=== PATIENT | male | born 1995 | race Caucasian/White ===

== ENCOUNTER 2017-01-31 11:07 | Inpatient (IN) | payer OTHER ==
--- NOTE | 2017-01-31 11:46 | EDPHY ---
H & P Stated Complaint: WOUND INFECTION L KNEE NOT BETTER ON ORAL ABX Time Seen by Provider: 01/31/17 11:33 HPI/ROS: CHIEF COMPLAINT: Worsening left leg infection HISTORY OF PRESENT ILLNESS: 21-year-old male history of atopic dermatitis, no history of MRSA, was in [place] last week and noted a pimple appearing area on his left lateral knee which became progressively larger, more thumb at this. He was seen at an urgent care emergency department initially started on monotherapy with Keflex and subsequently had Bactrim added to his medication regimen as he had progressively enlarging erythema. The erythema has become progressively larger and migrated proximally. He also notes recent fevers. No myalgias. No nausea or vomiting. He is here with his mother who is a local family practice physician. PRIMARY CARE PROVIDER: Leon Meyer REVIEW OF SYSTEMS: A ten point review of systems was performed and is negative with the exception of the items mentioned in the HPI PAST MEDICAL & SURGICAL HISTORY: Atopic dermatitis. History of septic arthritis left knee in 7th grade. SOCIAL HISTORY:lives in [place] PHYSICAL EXAM (Prior to examination, patient consented to physical exam, hands were washed and my usual and customary physical exam procedures followed) 1) GENERAL: Well-developed, well-nourished, alert and oriented. Appears nontoxic . 2) HEAD: Normocephalic, atraumatic 3) HEENT: Pupils equal, round, reactive to light bilaterally. Sclera anicteric. 4) NECK: Full range of motion, no meningeal signs. 5) LUNGS: Clear auscultation bilaterally 6) HEART: Regular rate and rhythm, no murmur, no heave, no gallop. 7) ABDOMEN: No guarding, no rebound, no focal tenderness, 8) MUSCULOSKELETAL: left lower extremity: Lateral aspect of the knee extending distally and more significantly proximally he has beefy red erythema with induration and a central lesion which is weeping. There is no fluctuance. No painWith axial loading of the knee joint. Full range of motion.Positive inguinal adenopathy. Soft tissue swelling of the left lower extremity is present with DP PT pulses present and brisk with normal color normal temperature. No crepitus. 9) BACK: no visual or palpable abnormality. 10) SKIN: No rash, no petechiae. DIFFERENTIAL DIAGNOSIS: in no particular include but not limited to cellulitis , abscess, DVT - Personal History Current Tetanus/Diphtheria Vaccine: Yes - Medical/Surgical History Hx Asthma: Yes Hx Chronic Respiratory Disease: No Hx Diabetes: No Hx Cardiac Disease: No Hx Renal Disease: No Hx Cirrhosis: No Hx Alcoholism: No Hx HIV/AIDS: No Hx Splenectomy or Spleen Trauma: No Other PMH: ASTHMA/EXCEMA - Social History Smoking Status: Never smoked Constitutional: Initial Vital Signs Temperature (C) 36.5 C 01/31/17 11:16 Heart Rate 68 01/31/17 11:16 Respiratory Rate 16 01/31/17 11:16 Blood Pressure 100/66 01/31/17 11:16 O2 Sat (%) 97 01/31/17 11:16 O2 Delivery Mode Room Air Allergies/Adverse Reactions: seafood Allergy (Uncoded 01/31/17 11:15) Home Medications: Medication Instructions Recorded Albuterol 01/31/17 Bactrim DS 01/31/17 Keflex 01/31/17 Qvar 01/31/17 Singulair 01/31/17 ZYRTEC 01/31/17 Medical Decision Making - Diagnostics Imaging Results: Imaging Impressions Extremity Venous Study 01/31/17 11:46 Impression: 1. Left groin nonspecific adenopathy. 2. No deep venous thrombosis left leg. Findings and recommendations discussed with Emergency Department physicianSarahi at 12:31 hour, 01/31/2017. Final report concurs with initial preliminary interpretation. Knee X-Ray 01/31/17 11:46 Impression: Soft tissue swelling with no acute osseous findings. images reviewed by myself ED Course/Re-evaluation: 1140 am: Discussed case with Dr Zeng in ER. 11:45 a.m.: The ER textile science technician has spoken with the hospital in [place], [place] and a will be faxing the wound culture results from 4 days ago 12:07 p.m.: Phone consultation hospitalist, Lulu, admit to Dr. Whitney. Patient will be started on Ancef as he has no known MRSA history. 12:25 p.m.: Wound culture results from hospital in [place] are positive for Staph aureus resistant to cephalosporin, sensitive to vancomycin - Data Points Laboratory Results: Laboratory Results 01/31/17 11:50 01/31/17 11:50 01/31/17 01/31/17 11:50 11:50 WBC 7.42 10^3/uL 10^3/uL (3.80-9.50) RBC 4.07 10^6/uL L 10^6/uL (4.40-6.38) Hgb 12.8 g/dL L g/dL (13.7-17.5) Hct 37.2 % L % (40.0-51.0) MCV 91.4 fL fL (81.5-99.8) MCH 31.4 pg pg (27.9-34.1) MCHC 34.4 g/dL g/dL (32.4-36.7) RDW 12.2 % % (11.5-15.2) Plt Count 229 10^3/uL 10^3/uL (150-400) MPV 9.8 fL fL (8.7-11.7) Neut % (Auto) 61.2 % % (39.3-74.2) Lymph % (Auto) 18.1 % % (15.0-45.0) [place] % (Auto) 12.4 % % (4.5-13.0) Eos % (Auto) 7.5 % % (0.6-7.6) Baso % (Auto) 0.4 % % (0.3-1.7) Nucleat RBC Rel Count 0.0 % % (0.0-0.2) Absolute Neuts (auto) 4.54 10^3/uL 10^3/uL (1.70-6.50) Absolute Lymphs (auto) 1.34 10^3/uL 10^3/uL (1.00-3.00) Absolute Monos (auto) 0.92 10^3/uL H 10^3/uL (0.30-0.80) Absolute Eos (auto) 0.56 10^3/uL H 10^3/uL (0.03-0.40) Absolute Basos (auto) 0.03 10^3/uL 10^3/uL (0.02-0.10) Absolute Nucleated RBC 0.00 10^3/uL 10^3/uL (0-0.01) Immature Gran % 0.4 % % (0.0-1.1) Immature Gran # 0.03 10^3/uL 10^3/uL (0.00-0.10) Sodium 138 mEq/L mEq/L (134-144) Potassium 4.5 mEq/L mEq/L (3.5-5.2) Chloride 103 mEq/L mEq/L (97-110) Carbon Dioxide 27 mEq/l mEq/l (22-31) Anion Gap 8 mEq/L mEq/L (8-16) BUN 11 mg/dL mg/dL (7-23) Creatinine 0.8 mg/dL mg/dL (0.7-1.3) Estimated GFR > 60 Glucose 83 mg/dL mg/dL (70-100) Calcium 9.3 mg/dL mg/dL (8.5-10.4) Medications Given: Discontinued Medications Cefazolin Sodium/Dextrose (Ancef 1 Gm (Premix)) 50 mls @ 200 mls/hr IV EDNOW ONE PRN Reason: Protocol Stop: 01/31/17 12:21 Last Admin: 01/31/17 12:18 Dose: 50 mls Departure - Departure Disposition: [facility] Inpatient Acute Clinical Impression: Left leg cellulitis Condition: Fair Referrals: NONE *PRIMARY CARE P,. [Primary Care Provider] - As per Instructions
[2017-01-31 11:59] LABS: % IMMATURE GRANULYOCYTES 0.4 % (0.0-1.1); ABSOLUTE IMMATURE GRANULOCYTES 0.03 10^3/uL (0.00-0.10); ADD DIFF? NO; ADD MORPH? NO; ADD SCAN? NO; ATYPICAL LYMPHOCYTE FLAG 20 (0-99); FRAGMENT RBC FLAG 0 (0-99); HEMATOCRIT 37.2 % (40.0-51.0); HEMOGLOBIN 12.8 g/dL (13.7-17.5); LEFT SHIFT FLG 10 (0-99); LIPEMIA HEMOLYSIS FLAG 90 (0-99); MEAN CELL HEMOGLOBIN 31.4 pg (27.9-34.1); MEAN CELL HEMOGLOBIN CONCENTR. 34.4 g/dL (32.4-36.7); MEAN CELL VOLUME 91.4 fL (81.5-99.8); MEAN PLATELET VOLUME 9.8 fL (8.7-11.7); PLATELET CLUMPS FLAG 0 (0-99); PLATELET COUNT 229 10^3/uL (150-400); RED BLOOD CELL COUNT 4.07 10^6/uL (4.40-6.38); RED CELL DISTRIBUTION WIDTH 12.2 % (11.5-15.2)
[2017-01-31 12:14] LABS: ANION GAP 8 mEq/L (8-16); CALCIUM 9.3 mg/dL (8.5-10.4); CARBON DIOXIDE 27 mEq/l (22-31); CHLORIDE 103 mEq/L (97-110); CREATININE 0.8 mg/dL (0.7-1.3); GLOMERULAR FILTRATION RATE > 60; GLUCOSE 83 mg/dL (70-100); POTASSIUM 4.5 mEq/L (3.5-5.2); SODIUM 138 mEq/L (134-144)
[2017-01-31] MEDS ORDERED: VANCOMYCIN HCL/NORMAL SALINE 250 ML IV ONE (12:28)
--- NOTE | 2017-01-31 13:32 | PDGENHP ---
History and Physical - Chief Complaint Left knee pain and redness - History of Present Illness 21 yo presenting to the ED with left knee pain with progressive induration and erythema. 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 The pain slowly progressed to the point where he could no longer stand or walk on his leg and had to use crutches. The pain is some what improved with Ibuprofen. The pain is described as constant, sharp, and isolated to the lower left lateral knee. He noticed erythema that started on his knee and spread upwards to his left thigh and lower calf. He reports fever ranging 99-102.5 and chills since since last . He denies trauma, but reports multiple small lacerations in his lower extremities that he may have sustained while working outdoors. Last he went to an urgent care in [place] where he received Bactrim. Tuesday he went to an ER where they drained the wound and prescribed Keflex to take with the Bactrim. The wound has been oozing pus since Tuesday. Today he went to [facility] which referred him to ED for IV antibiotics. Currently he denies fever, nausea, vomiting, diarrhea. He denies significant pain with left knee flexion/ extension. History Information - Allergies/Home Medication List Allergies/Adverse Reactions: seafood Allergy (Uncoded 01/31/17 11:15) Home Medications: Albuterol [Proventil Inhaler HFA (*)] 1 - 2 puffs IH Q4H PRN 01/31/17 [Last Taken Unknown] Cetirizine HCl 10 mg PO DAILY 01/31/17 [Last Taken 01/27/17] Montelukast Sodium [Singulair 10 mg (*)] 10 mg PO DAILY@1800 01/31/17 [Last Taken 01/29/17] I have personally reviewed and updated: family history, medical history, social history, surgical history - Past Medical History asthma Additional medical history: 1. Eczema. 2. septic arthritis right knee at age 10 - Surgical History Additional surgical history: I&D of septic arthritis, wisdom teeth removal - Social History Smoking Status: Never smoked Alcohol Use: None Drug Use: None Review of Systems ROS: 10pt was reviewed & negative except for what was stated in HPI & below Physical Exam Temp Pulse Resp BP Pulse Ox 36.8 C 63 18 144/73 H 96 01/31/17 12:00 01/31/17 12:00 01/31/17 12:00 01/31/17 12:00 01/31/17 12:00 Constitutional: no apparent distress, appears nourished, not in pain Eyes: PERRL, anicteric sclera, EOMI Ears, Nose, Mouth, Throat: moist mucous membranes, hearing normal, ears appear normal, no oral mucosal ulcers Cardiovascular: regular rate and rhythym, no murmur, rub, or gallop, No edema Respiratory: no respiratory distress, no rales or rhonchi, clear to auscultation Gastrointestinal: normoactive bowel sounds, soft, non-tender abdomen, no palpable masses Genitourinary: no bladder fullness, no bladder tenderness Skin: warm, other (draining wound left knee with surrounding erythema and induration extending up the thigh) Musculoskeletal: normal joint ROM (left knee without pain) Neurologic: AAOx3, CN II-XII Intact, No facial droop Psychiatric: interacting appropriately, not anxious, not encephalopathic, thought process linear Lymph, Heme, Immunologic: no cervical LAD, no supraclavicular LAD Lab Data & Imaging Review 01/31/17 11:50 01/31/17 11:50 WBC 7.42 10^3/uL (3.80-9.50) 01/31/17 11:50 RBC 4.07 10^6/uL (4.40-6.38) L 01/31/17 11:50 Hgb 12.8 g/dL (13.7-17.5) L 01/31/17 11:50 Hct 37.2 % (40.0-51.0) L 01/31/17 11:50 MCV 91.4 fL (81.5-99.8) 01/31/17 11:50 MCH 31.4 pg (27.9-34.1) 01/31/17 11:50 MCHC 34.4 g/dL (32.4-36.7) 01/31/17 11:50 RDW 12.2 % (11.5-15.2) 01/31/17 11:50 Plt Count 229 10^3/uL (150-400) 01/31/17 11:50 MPV 9.8 fL (8.7-11.7) 01/31/17 11:50 Neut % (Auto) 61.2 % (39.3-74.2) 01/31/17 11:50 Lymph % (Auto) 18.1 % (15.0-45.0) 01/31/17 11:50 [place] % (Auto) 12.4 % (4.5-13.0) 01/31/17 11:50 Eos % (Auto) 7.5 % (0.6-7.6) 01/31/17 11:50 Baso % (Auto) 0.4 % (0.3-1.7) 01/31/17 11:50 Nucleat RBC Rel Count 0.0 % (0.0-0.2) 01/31/17 11:50 Absolute Neuts (auto) 4.54 10^3/uL (1.70-6.50) 01/31/17 11:50 Absolute Lymphs (auto) 1.34 10^3/uL (1.00-3.00) 01/31/17 11:50 Absolute Monos (auto) 0.92 10^3/uL (0.30-0.80) H 01/31/17 11:50 Absolute Eos (auto) 0.56 10^3/uL (0.03-0.40) H 01/31/17 11:50 Absolute Basos (auto) 0.03 10^3/uL (0.02-0.10) 01/31/17 11:50 Absolute Nucleated RBC 0.00 10^3/uL (0-0.01) 01/31/17 11:50 Immature Gran % 0.4 % (0.0-1.1) 01/31/17 11:50 Immature Gran # 0.03 10^3/uL (0.00-0.10) 01/31/17 11:50 Sodium 138 mEq/L (134-144) 01/31/17 11:50 Potassium 4.5 mEq/L (3.5-5.2) 01/31/17 11:50 Chloride 103 mEq/L (97-110) 01/31/17 11:50 Carbon Dioxide 27 mEq/l (22-31) 01/31/17 11:50 Anion Gap 8 mEq/L (8-16) 01/31/17 11:50 BUN 11 mg/dL (7-23) 01/31/17 11:50 Creatinine 0.8 mg/dL (0.7-1.3) 01/31/17 11:50 Estimated GFR > 60 01/31/17 11:50 Glucose 83 mg/dL (70-100) 01/31/17 11:50 Calcium 9.3 mg/dL (8.5-10.4) 01/31/17 11:50 outside records from [facility] in [place] were reviewed Wound culture grew 2+ Staph aureus (MSSA) Imaging Review: lower extremity Doppler was negative for DVT Visualized and Interpreted imaging results: Yes Interpretation: left knee x-ray was reviewed negative for gas or bony deformity Assessment & Plan Assessment: 21y/o male presenting with: # left knee cellulitis with abscess due to MSSA failing outpatient treatment with Bactrim and Keflex -Continue IV Ancef -continue to monitor for worsening symptoms -I consulted with Dr. Charles from general surgery who is recommending a CT to evaluate for deep tissue or joint involvement #normocytic anemia -unknown etiology -follow up with PCP
[2017-01-31] MEDS ORDERED: ONDANSETRON 4 MG/2 ML VIAL IVP PRN (14:27)
[2017-01-31] MEDS ORDERED: ACETAMINOPHEN 325 MG TAB PO PRN (14:27)
[2017-01-31] MEDS ORDERED: IBUPROFEN 600 MG TAB PO PRN (14:27)
[2017-01-31] MEDS ORDERED: ALBUTEROL 60 PUFFS/8 GM MDI IH PRN (14:28)
[2017-01-31] MEDS ORDERED: IOPAMIDOL (ISOVUE-300) 100 ML BTL IV ONE (15:33)
[2017-01-31] MEDS: MONTELUKAST SODIUM 10 MG TAB PO SCH (18:36)
[2017-01-31] MEDS ORDERED: ceFAZolin 1 GM in D5W 50 ML IV SCH (20:00)
[2017-02-01] MEDS: CETIRIZINE 10 MG TAB PO SCH (08:35)
--- NOTE | 2017-02-01 09:27 | WOCRNPDOC ---
WOCRN Advanced Assessment Note - Skin Integrity Problem, Advanced Assess Left Lateral Knee Surgical Wound/Incision Dressing Type: Gauze Dressing Description: Intact, Shadowed Exudate Amount: Scant Exudate Color: Reddish/Yellow Exudate Characteristic(s): Purulent, Serosanguinous Integumentary Issue Intervention: Visualized Under Dressing Judy Wound Tissue: Erythema (marked, receding from existing margins), Swollen, Painful/Tender Judy Wound Swelling: Mild Site Odor: None Skin Integrity Problem Comment: Small, puncture-like wound noted to L lateral knee, w/ judy-wound erythema and swelling. Small amount of purulence expressed w / palpation, though remainder of surrounding tissue is non-fluctuant. Surgical consult pending for I&D. No need for wound care to be involved at this time. Advised to reconsult PRN.
[2017-02-01 09:39] VITALS: RESP 16
--- NOTE | 2017-02-01 11:00 | GCON ---
[f rep st] CONSULTATION REFERRING PHYSICIAN: Phi Whitney, DO Thank you, Dr. Phi Whitney. REASON FOR CONSULTATION: Infection, left leg. HISTORY: The patient is a 21-year-old white male, who has presented with progressive induration, erythema, and left leg pain. 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 The pain has locally progressed to the point where he could not stand or walk. He had to use crutches. He went to an Urgent Care Clinic on (today is Tuesday ) in [place], received Bactrim. On Tuesday went to an ER where they drained the wound and provided prescribed Keflex to take in addition to the Bactrim. Erythema is marked with a blue marking pen. He went to [facility] on Tuesday and was referred to the ED for IV antibiotics. When I saw him in the ER he had a swollen left leg with a maximum area of induration and skin breakdown at the level of tibial tuberosity on the anterolateral aspect. There were 3 concentric areas of markings on his leg with a blue pen. The erythema had regressed to within the third (smallest area ) but had progressed slightly up the posterior thigh. At that time I recommended a CAT scan, to see if there was any evidence of osteomyelitis or subjacent air/fluid collection. I saw him again on the morning of February 01, 2017. He is known to have MSSA from the [place] cultures. A small amount of drainage was noted. In reviewing the CAT scan there is no was no obvious fluid collection or gas. A small amount of purulent drainage is expressed by pressing on the tissue. The erythema is markedly less. IMPRESSION: Cellulitis with local drainage that has significantly responded to treatment. I recommend that we continue IV antibiotics, elevate the leg, and push his oxygen saturations to 98%. I do not see any indication for surgical intervention at this time. Thank you for asking me to share in his care. /[id number]/MODL MTDD
--- NOTE | 2017-02-01 13:39 | HOSPPROG ---
Hospitalist Progress Note Assessment/Plan: 21y/o male presenting with: # left knee cellulitis with abscess due to MSSA failing outpatient treatment with Bactrim and Keflex -Continue IV Ancef -continue to monitor for worsening symptoms -I discussed the case with Dr. Charles from general surgery who does not think further debridement is warranted at this time #normocytic anemia -unknown etiology -follow up with PCP dispo: continue IV abx for at least one more day. Subjective: improving left knee pain/redness. no fevers. wound continues to drain Objective: Vital Signs Temp Pulse Resp BP Pulse Ox 36.3 C 69 16 126/60 H 96 02/01/17 08:00 02/01/17 08:00 02/01/17 08:00 02/01/17 08:00 02/01/17 08:00 01/31/17 02/01/17 02/02/17 05:59 05:59 05:59 Intake Total 500 Balance 500 - Physical Exam Constitutional: no apparent distress, appears nourished, not in pain Cardiovascular: regular rate and rhythym, no murmur, rub, or gallop Respiratory: no respiratory distress, no rales or rhonchi, clear to auscultation Skin: other (improving erythema and induration over left knee and thigh; wound continues to drain copious amounts of purulent debris) ICD10 Worksheet Patient Problems: Problems Problem Status Onset Left leg cellulitis Acute
[2017-02-01] MEDS: MONTELUKAST SODIUM 10 MG TAB PO SCH (18:58)
[2017-02-02 08:12] VITALS: BP 122/67; PULSE 65; TEMP 98.9; O2SAT 95
[2017-02-02] MEDS: CETIRIZINE 10 MG TAB PO SCH (09:20)
--- NOTE | 2017-02-02 10:18 | SOAPPROG ---
SOAP Progress Note Assessment/Plan: 02/02/17 10:15 Assessment: Continues to improve. Plan: Antibiotics per hospitalist service. Subjective: I feel much better Objective: Vital Signs Temp Pulse Resp BP Pulse Ox 37.2 C 65 16 122/67 H 95 02/02/17 08:00 02/02/17 08:00 02/02/17 08:00 02/02/17 08:00 02/02/17 08:00 02/01/17 02/02/17 02/03/17 05:59 05:59 05:59 Intake Total 500 Balance 500 - Time Spent With Patient Time Spent With Patient: 15 Physical Exam - Physical Exam Extremities: other (proximal jacque-lateral left lower leg shows minimal to no fluctuance without purulent drainage.) ICD10 Worksheet Patient Problems: Problems Problem Status Onset Left leg cellulitis Acute
--- NOTE | 2017-02-02 11:09 | HOSPPROG ---
Hospitalist Progress Note Assessment/Plan: 21y/o male presenting with left red knee while working outside/ was seen at ER and had knee aspirated/ which showed MSSA. # left knee cellulitis with abscess due to MSSA failing outpatient treatment with Bactrim and Keflex -Continue IV Ancef -Dr Charles evaluated earlier today -hx of septic joint infection when he was a child/right knee -asked Dr Campo to consult #normocytic anemia -unknown etiology -follow up with PCP dispo: continue IV abx Subjective: Martir said pain is much better today/ his leg is less swollen. Foot is less swollen. Objective: Vital Signs Temp Pulse Resp BP Pulse Ox 37.2 C 65 16 122/67 H 95 02/02/17 08:00 02/02/17 08:00 02/02/17 08:00 02/02/17 08:00 02/02/17 08:00 02/01/17 02/02/17 02/03/17 05:59 05:59 05:59 Intake Total 500 Balance 500 - Physical Exam Constitutional: no apparent distress, appears nourished, not in pain Eyes: PERRL Ears, Nose, Mouth, Throat: hearing normal Respiratory: no respiratory distress Gastrointestinal: normoactive bowel sounds Skin: other (left leg /knee area with erythema, open skin tear on lateral side of knee, +warmth and redness on adductor side left thigh as well as behind the knee aea) Musculoskeletal: full muscle strength Neurologic: AAOx3 Psychiatric: interacting appropriately, not anxious ICD10 Worksheet Patient Problems: Problems Problem Status Onset Left leg cellulitis Acute
--- NOTE | 2017-02-02 12:45 | PDIAF ---
- Diagnosis Diagnosis: Severe LLE cellulitis Code Status: Full Code - Medication Management Discharge Medications: Medications to Continue on Transfer Albuterol [Proventil Inhaler HFA (*)] 1 - 2 puffs IH Q4H PRN 01/31/17 [Last Taken Unknown] Cetirizine HCl 10 mg PO DAILY 01/31/17 [Last Taken 01/27/17] Montelukast Sodium [Singulair 10 mg (*)] 10 mg PO DAILY@1800 01/31/17 [Last Taken 01/29/17] Antenna Rigger Antibiotics: ceftriaxone 1gm IV daily Antenna Rigger Antibiotic Stop Date: 02/04/17 Discharge Medications: Refer to the Discharge Home Medication list for PRN reason. PICC Care - Routine: N/A (Use PIV) - Orders Services needed: Home Care, Registered Nurse Home Care Face to Face: I certify that this patient was under my care and that I had the required [id number] encounter meeting the encounter requirements on the discharge day. My findings support the fact that the patient is homebound as defined in CMS Chapter 7 Medicare Benefits Manual 30.1.1, The condition of the patient is such that there exists a normal inability to leave home and consequently, leaving home would require a considerable and taxing effort. Diet Recommendation: no restrictions on diet Activity/Weight Bearing Restrictions: none Additional: Keep L Lower extremity elevated - Labs/Radiology CBC Date: 02/11/17 CMP Date: 02/11/17 Call or Fax Lab and Imaging Results to: [id number] Alber - Follow Up Care Current Providers and Referrals: Leeann Campo MD [Medical Doctor] - 02/04/17 2:30 pm NONE *PRIMARY CARE P,. [Unknown] - As per Instructions
--- NOTE | 2017-02-02 13:49 | GCON ---
[f rep st] CONSULTATION INFECTIOUS DISEASE CONSULTATION DATE OF CONSULTATION: 02/02/2017 REASON FOR CONSULTATION: Left lower extremity cellulitis. HISTORY OF PRESENT ILLNESS: A 21-year-old male, who is generally healthy, who approximately 1 week ago developed progressive redness of his left lower extremity. He was seen multiple times in a [facility] environment while in [place]. Initially placed on Bactrim, then underwent I and D of the wou nd, and prescribed Keflex to take with the Bactrim, and subsequently culture showed MSSA. The patie nt went for general followup at primary care, and subsequently he was referred to the emergency room for IV antibiotics on 01/31/2017. Surgery was consulted at that time, and recommended a CT scan, w hich showed soft tissue swelling, but no visible abscess. Also, noted was no joint effusion. The p atient was started on IV cefazolin, and general consensus is that patient is clinically improved. Lorie mena has been afebrile throughout his hospital course, and on admission he had a normal white count. PAST MEDICAL HISTORY: Includes seasonal allergies, septic arthritis of the right knee at age 10. SURGICAL HISTORY: I and D of septic arthritis and wisdom teeth extraction. SOCIAL HISTORY: No tobacco, occasional alcohol, no drug use. The patient is heterosexual, but is n ot currently in a relationship. REVIEW OF SYSTEMS: A complete 10-point review of systems was performed, and is negative except as m entioned in the HPI. FAMILY HISTORY: Negative for history of recurrent infections. ALLERGIES: No antibiotic allergies. MEDICATIONS: Tylenol, Proventil, cefazolin 1 g IV q.12 started 01/31/2017, Zofran, Singulair, Motri n, and Zyrtec. PHYSICAL EXAM: VITAL SIGNS: Blood pressure 122/67, heart rate 65, respiratory rate 16, saturation 95% on room air, temperature 37.2. GENERAL: This is a well-appearing male, sitting up in bed, in n o acute distress. Fluent speech. HEENT: Pupils reactive bilaterally. Oropharynx: Fair dentition . Moist mucous membranes. NECK: Supple. No lymphadenopathy. CARDIOVASCULAR: Regular rate. No murmurs. CHEST: Clear to auscultation bilaterally. ABDOMEN: Soft, nontender. Bowel sounds are p resent. EXTREMITIES: He has left lower extremity cellulitis with erythema over the lateral aspect and under surface of his thigh, as well as erythema tracking medial thigh. By report, the leg is mu ch less swollen and less erythema with less intensity. Notable joint is without swelling, and full range of motion is intact. LABORATORY: White count 7.4, hematocrit 37, platelets of 229. Creatinine 0.9. Blood cultures draw n on admission, 01/31/2017, are no growth to date. IMAGING: As per HPI. ASSESSMENT AND PLAN: Severe left lower extremity cellulitis with other culture showing methicillin- susceptible Staphylococcus aureus. Patient is clinically improved, but likely needs a couple more d ays of IV antibiotics to completely resolve infection. Discussed risks and benefits of continuing h ospitalization versus outpatient IV antibiotics with Rocephin due to convenience of daily dosing. B oth the patient and his mother prefer outpatient IV antibiotics. Will leave peripheral IV in place and give daily dosing of IV Rocephin through infusion center. Would recommend continued elevation o f the left lower extremity, and will see patient in my clinic on Tuesday at 2:30. Thank you for this consultation. We will continue to see him as an outpatient. /[id number]/MODL
--- NOTE | 2017-02-02 16:19 | GDS ---
[f rep st] DISCHARGE SUMMARY DISCHARGE DIAGNOSES: 1. Left knee cellulitis/methicillin-sensitive Staphylococcus aureus. 2. Normocytic anemia. CONSULTATIONS DURING STAY: Leeann Campo MD; Ochoa Charles MD. HISTORY OF PRESENT ILLNESS: Briefly, The patient is a very nice 21-year-old male, who had left knee pain with progressive induration and erythema. 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 He developed redness and swelling to the left knee area. The pain slowly progressed to the point where he could no longer stand or walk. He was seen in urgent care in [place], where he received Bactrim. Tuesday he went to the ER, where the knee was drained and he was prescribed Keflex to take. His knee didn't improve with treatment. On returning to [place], he went to the [facility] and was referred to the emergency room for further evaluation. He had a CT scan done, which showed extensive soft tissue inflammation at the lateral aspect of the knee, with no visible abscess, and also had an ultrasound performed which showed left groin nonspecific adenopathy and no DVT. Today, he will be discharged on ceftriaxone and will come to [facility] to get this for 2 more days. HOSPITAL COURSE PER PROBLEM: 1. Left lower extremity cellulitis. He will come to [facility] for ceftriaxone. Blood cultures preliminary showed no growth. He will follow up with Dr. Campo in the outpatient setting. 2. Normocytic anemia. Further followup with his primary care provider in the outpatient setting. CONDITION AT DISCHARGE: Stable. Blood pressure is 122/67, heart rate is 65, respiratory rate is 16, O2 sats on room air 95%. MEDICATIONS AT DISCHARGE: Please see the EMR. DISCHARGE INSTRUCTIONS: 1. To come to [facility] to receive IV infusion for the next 2 days. 2. To follow up with Dr. Leeann Campo on February 04 at 2:30 p.m. Greater than 35 minutes discharging and coordinating the patient's care. /[id number]/MODL MTDD
== END 2017-02-02 15:56 | disposition home or self-care (01) | DRG 603 ==
LOC: F3E 15:57
PROVIDERS: ADMIT Family Medicine; ATTEND Family Medicine
DX: L03.116 Cellulitis of left lower limb (principal); B95.61 Methicillin susceptible Staphylococcus aureus infection as the cause of diseases classified elsewhere; D64.9 Anemia, unspecified
CPT/HCPCS: 96365; 96366; J0690; J0696; J3370; Q9967